=== PATIENT | male | born 1960 | race Caucasian/White ===

== ENCOUNTER 2016-12-08 08:24 | Day surgery (SDC) | payer BC ==
--- NOTE | ~2016-12-08 | EGD ---
EGD REPORT [facility] [address] [address] NAME: JUAN FRANCISCO MARVIN JR : 60 STATUS : REG [facility]#: [id number] AGE: 56 ADM/REG DATE : 12/08/16 MR#: [id number] REPORT SERV DATE: 12/08/16 DICTATED BY: JEZ LEPE DATE: 12/08/16 REPORT STATUS : Draft TRANSCRIBED BY: [facility] DATE: 12/08/16 Endoscopy Center Patient Name: Juan Francisco Marvin Date of : 1960 Attending MD: JEZ LEPE MD Procedure Date No Time: 12/08/2016 Procedure: Colonoscopy Indications: High risk colon cancer surveillance: Personal history of colonic polyps Referring MD: SARANYA MERCADO Medicines: Monitored Anesthesia Care Complications: No immediate complications. Procedure: Pre-Anesthesia Assessment: - ASA Grade Assessment: III - A patient with severe systemic disease. After I obtained informed consent, the scope was passed under direct vision. Throughout the procedure, the patient's blood pressure, pulse, and oxygen saturations were monitored continuously. The CF [id number] was introduced through the anus and advanced to the cecum, identified by appendiceal orifice and ileocecal valve. The colonoscopy was performed with moderate difficulty due to significant looping and a tortuous colon. Successful completion of the procedure was aided by applying abdominal pressure. The patient tolerated the procedure well. The quality of the bowel preparation was adequate. Findings: The digital rectal exam was normal. Pertinent negatives include no palpable rectal lesions. A sessile polyp was found in the cecum. The polyp was 3 mm in size. The polyp was removed with a cold biopsy forceps. Resection and retrieval were complete. A sessile polyp was found in the transverse colon. The polyp was 5 mm in size. The polyp was removed with a cold biopsy forceps. Resection and retrieval were complete. Hemorrhoids were found during retroflexion and were mild. Impression: - One 3 mm polyp in the cecum. Resected and retrieved. - One 5 mm polyp in the transverse colon. Resected and retrieved. - Hemorrhoids. Recommendation: - Patient has a contact number available for EGD REPORT [address] [address] NAME: JUAN FRANCISCO MARVIN : 60 STATUS : [place] [facility] [place] PAT#: [id number] AGE: 56 ADM/REG DATE : 12/08/16 MR#: [id number] REPORT SERV DATE: 12/08/16 DICTATED BY: JEZ LEPE DATE: 12/08/16 REPORT STATUS : Draft TRANSCRIBED BY: [facility] DATE: 12/08/16 emergencies. The signs and symptoms of potential delayed complications were discussed with the patient. Return to normal activities tomorrow. Written discharge instructions were provided to the patient. - Regular diet. - Continue present medications. - Await pathology results. - Repeat colonoscopy in 5 years for surveillance. - Return to GI clinic PRN. Procedure Code(s): --- Professional --- 30764, Colonoscopy, flexible, proximal to splenic flexure; with biopsy, single or multiple Diagnosis Code(s): --- Professional --- D12.3, Benign neoplasm of transverse colon D12.0, Benign neoplasm of cecum K64.9, Unspecified hemorrhoids Z86.010, Personal history of colonic polyps CPT copyright 2013 [employer]. All rights reserved. The codes documented in this report are preliminary and upon electronics supervisor review may be revised to meet current compliance requirements. JEZ LEPE MD 12/08/2016 11:27 AM This report has been signed electronically. Number of Addenda: 0 Note Initiated On: 12/08/2016 10:51 AM Scope Withdrawal Time 0 hours 11 minutes 41 seconds [address] [place] [address]
[~2016-12-08 08:24] MED LIST: CENTRUM PO; CLARIT10 PO; COZ50 PO; CRESTOR10 PO; GLUCOTROL5 PO; GLUCPH PO; IND25 PO; KLOR-CON 1010 MEQ PO; L40 PO; L80 PO; LEVOTHYROXIN150 MCG PO; LOP50 PO; MULTIVIT/MIN PO; NEUR100 PO; NIASPAN500 PO; POT GLUCONAT595 M1 OR; VOLT75 PO; Z300 PO
== END 2016-12-08 23:59 | disposition home or self-care (01) ==
LOC: DMU 08:24
PROVIDERS: Internal Medicine Gastroenterology
PROC: 0DBL8ZZ Excision of Transverse Colon, Via Natural or Artificial Opening Endoscopic (ICD-10-PCS; 2016-12-08)
PROC: 0DBH8ZZ Excision of Cecum, Via Natural or Artificial Opening Endoscopic (ICD-10-PCS; principal; 2016-12-08 10:00)
DX: Z12.11 Encounter for screening for malignant neoplasm of colon (principal); D12.0 Benign neoplasm of cecum; D12.3 Benign neoplasm of transverse colon; K64.9 Unspecified hemorrhoids; E78.00 Pure hypercholesterolemia, unspecified; M10.9 Gout, unspecified; M19.90 Unspecified osteoarthritis, unspecified site; G47.33 Obstructive sleep apnea (adult) (pediatric); F17.290 Nicotine dependence, other tobacco product, uncomplicated; I10 Essential (primary) hypertension; E11.9 Type 2 diabetes mellitus without complications; E03.9 Hypothyroidism, unspecified; E66.9 Obesity, unspecified; Z68.41 Body mass index [BMI] 40.0-44.9, adult; Z99.89 Dependence on other enabling machines and devices; Z98.890 Other specified postprocedural states; Z86.61 Personal history of infections of the central nervous system; Z86.010 Personal history of colon polyps; Z88.6 Allergy status to analgesic agent; Z79.899 Other long term (current) drug therapy; Z79.84 Long term (current) use of oral hypoglycemic drugs
CPT/HCPCS: 82962; 88305